=== PATIENT | female | born 1950 | race Caucasian/White ===

== ENCOUNTER 2018-12-20 20:54 | Inpatient (IN) | payer OTHER, MEDICARE ==
[2018-12-20] MEDS ORDERED: IPRATROPIUM-ALBUTEROL 3 ML NEB INHALATION STA (21:18)
[2018-12-20] MEDS ORDERED: predniSONE 50 MG TAB PO STA (21:18)
--- NOTE | 2018-12-20 21:41 | ED ---
General Adult HPI - General Source: patient, family, RN notes reviewed, old records reviewed Mode of arrival: ambulatory Limitations: no limitations <Lamberto Peralta - Last Filed: 12/20/18 23:27> <Larisa Levi - Last Filed: 12/21/18 21:40> - General Chief complaint: Upper Respiratory Infection Stated complaint: Cough Time Seen by Provider: 12/20/18 21:05 - History of Present Illness Initial comments: 68-year-old female patient with past medical history of atrial fibrillation anticoagulated on Coumadin, to PD presents to ED with approximately 6 days of productive cough. Patient denies any other complaints. Denies nausea vomiting diarrhea, fevers and chills. Patient reports that she has had some mild chest pain shortness of breath with coughing. Denies any chest pain or shortness of breath at baseline. Patient denies any other complaints. Systemic: Pt denies fatigue, myalgia, fever/chills, rash. Pt denies weakness, night sweats, weight loss. Neuro: Pt denies headache, visual disturbances, syncope or pre-syncope. HEENT: Pt denies ocular discharge or irritation, otalgia, rhinorrhea, pharyng itis or notable lymphadenopathy. Cardiopulmonary: Pt denies heart palpitations, dyspnea on exertion. Abdominal/GI: Pt denies abdominal pain, n/v/d. : Pt denies dysuria, burning w/ urination, frequency/urgency. Denies new onset urinary or bowel incontinence. MSK: Pt denies myalgia, loss of strength or function in extremities. Neuro: Pt denies new onset weakness, paresthesias. (Lamberto Peralta) - Related Data Home Medications Medication Instructions Recorded Confirmed Atenolol [Tenormin] 25 mg PO DAILY 12/20/18 12/20/18 Cholecalciferol [Vitamin D3] 1,000 unit PO DAILY 12/20/18 12/20/18 Flecainide Acetate 200 mg PO BID 12/20/18 12/20/18 LORazepam [Ativan] 0.5 mg PO BID PRN 12/20/18 12/20/18 Lovastatin [Mevacor] 40 mg PO HS 12/20/18 12/20/18 Lutein 10 mg PO DAILY 12/20/18 12/20/18 Sertraline [Zoloft] 50 mg PO HS 12/20/18 12/20/18 Warfarin [Coumadin] 2.5 mg PO HS 12/20/18 12/20/18 Warfarin [Coumadin] 3.75 mg PO TH 12/20/18 12/20/18 risperiDONE [RisperDAL] 1 mg PO HS 12/20/18 12/20/18 Loratadine [Claritin] 10 mg PO DAILY 12/21/18 12/21/18 Allergies Allergy/AdvReac Type Severity Reaction Status Date / Time metoclopramide [From Reglan] Allergy Swelling Verified 12/20/18 21:14 Review of Systems ROS Other: All systems not noted in ROS Statement are negative. <Lamberto Peralta - Last Filed: 12/20/18 23:27> ROS Other: All systems not noted in ROS Statement are negative. <Larisa Levi - Last Filed: 12/21/18 21:40> ROS Statement: Those systems with pertinent positive or pertinent negative responses have been documented in the HPI. 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 Past Psychological History: Depression Smoking Status: Former smoker Past Alcohol Use History: None Reported Past Drug Use History: None Reported <Lamberto Peralta - Last Filed: 12/20/18 23:27> - Past Family History Father Family Medical History: Congestive Heart Failure (CHF) Mother Family Medical History: Cancer Additional Family Medical History / Comment(s): lymphoma Sister(s) Family Medical History: Cancer Additional Family Medical History / Comment(s): brain cancer <Larisa Levi - Last Filed: 12/21/18 21:40> General Exam Limitations: no limitations <Lamberto Peralta - Last Filed: 12/20/18 23:27> - General Exam Comments Initial Comments: Constitutional: NAD, AOX3, Pt has pleasant affect. HEENT: NC/AT, trachea midline, neck supple, no lymphadenopathy. Posterior pharynx non erythematous, without exudates. External ears appear normal, without discharge. Mucous membranes moist. Eyes PERRLA, EOM intact. There is no scleral icterus. No pallor noted. Cardiopulmonary: RRR, no murmurs, rubs or gallops, no JVD noted. Mild wheezing noted in anterior lung mancera, resolved after breathing treatment. Lungs CTAB. No peripheral edema. Abdominal exam: Abdomen soft and non-distended. Abdomen non-tender to palpation in all 4 quadrants. Bowel sounds active in LLQ. No hepatosplenomegaly. No ecchymosis Neuro: CN II-XII grossly intact. No nuchal rigidity. MSK: No posterior calf tenderness bilaterally, homans sign negative bilaterally. Posterior tibialis and radial pulse +2 bilaterally. Sensation intact in upper and lower extremities. Full active ROM in upper and lower extremities, 5/5 stregnth. (Lamberto Peralta) Course Vital Signs 12/20/18 12/20/18 12/20/18 20:59 21:24 21:33 Temperature 98.3 F Pulse Rate 94 94 Respiratory 20 16 Rate Blood Pressure 117/74 O2 Sat by Pulse 94 L Oximetry 12/20/18 12/20/18 12/20/18 21:42 22:33 23:01 Temperature Pulse Rate 92 53 L 92 Respiratory 16 16 Rate Blood Pressure 125/56 98/57 O2 Sat by Pulse 96 96 Oximetry Medical Decision Making - Lab Data Result diagrams: 12/20/18 21:25 12/20/18 21:25 - EKG Data -: EKG Interpreted by La (and dr levi) <Lamberto Peralta - Last Filed: 12/20/18 23:27> - Lab Data Result diagrams: 12/21/18 05:38 12/20/18 21:25 <Larisa Levi - Last Filed: 12/21/18 21:40> - Medical Decision Making 68-year-old female patient with past medical history of atrial fibrillation anticoagulated on Coumadin, to PD presents to ED with approximately 6 days of productive cough. Patient denies any other complaints. Denies nausea vomiting diarrhea, fevers and chills. Patient reports that she has had some mild chest pain shortness of breath with coughing. Denies any chest pain or shortness of breath at baseline. Patient denies any other complaints. Pt VSS afebrile. Physical exam displayed mild wheezing in anterior lung mancera. His of this breathing treatment. Chest revealed no acute process. EKG NSR. CBC non- impressive. Coagulation studies revealed therapeutic INR 2.7. D-dimer negative. CMP non-impressive. Troponin elevated at 0.493. Influenza negative. Patient diagnosed and systemic. Patient started on low intensity heparin. No bolus as already anticoagulated on warfarin. She'll be admitted for serial troponins and further evaluation. Case discussed and pt seen by Dr. Levi. (Lamberto Peralta) I personally saw and examined the patient. I reviewed and agree with the mid- level provider findings including all diagnostic interpretations and treatment plans as written unless otherwise stated. Patient care was discussed with admitting physician Dr. Dumont who agrees with plan for admission for serial troponins and continuous monitoring. (Larisa Levi) - Lab Data Lab Results 12/20/18 12/20/18 12/20/18 Range/Units 21:25 21:25 21:25 WBC 8.3 (3.8-10.6) k/uL RBC 3.95 (3.80-5.40) m/uL Hgb 12.1 (11.4-16.0) gm/dL Hct 35.8 (34.0-46.0) % MCV 90.6 (80.0-100.0) fL MCH 30.7 (25.0-35.0) pg MCHC 33.9 (31.0-37.0) g/dL RDW 13.1 (11.5-15.5) % Plt Count 295 (150-450) k/uL Neutrophils % 80 % Lymphocytes % 11 % Monocytes % 5 % Eosinophils % 1 % Basophils % 0 % Neutrophils # 6.6 (1.3-7.7) k/uL Lymphocytes # 0.9 L (1.0-4.8) k/uL Monocytes # 0.4 (0-1.0) k/uL Eosinophils # 0.1 (0-0.7) k/uL Basophils # 0.0 (0-0.2) k/uL PT 25.9 H (9.0-12.0) sec INR 2.7 H (<1.2) APTT 34.2 H (22.0-30.0) sec D-Dimer 0.25 (<0.60) mg/L FEU Sodium 138 (137-145) mmol/L Potassium 3.5 (3.5-5.1) mmol/L Chloride 100 (98-107) mmol/L Carbon Dioxide 27 (22-30) mmol/L Anion Gap 11 mmol/L BUN 17 (7-17) mg/dL Creatinine 0.65 (0.52-1.04) mg/dL Est GFR (CKD-EPI)AfAm >90 (>60 ml/min/1.73 sqM) Est GFR (CKD-EPI)NonAf >90 (>60 ml/min/1.73 sqM) Glucose 120 H (74-99) mg/dL Calcium 9.5 (8.4-10.2) mg/dL Magnesium (1.6-2.3) mg/dL Total Bilirubin 0.6 (0.2-1.3) mg/dL AST 23 (14-36) U/L ALT 32 (9-52) U/L Alkaline Phosphatase 94 (38-126) U/L Troponin I (0.000-0.034) ng/mL NT-Pro-B Natriuret Pep pg/mL Total Protein 6.9 (6.3-8.2) g/dL Albumin 4.1 (3.5-5.0) g/dL Influenza Type A RNA (Not Detectd) Influenza Type B (PCR) (Not Detectd) 12/20/18 12/20/18 12/20/18 Range/Units 21:25 21:25 21:25 WBC (3.8-10.6) k/uL RBC (3.80-5.40) m/uL Hgb (11.4-16.0) gm/dL Hct (34.0-46.0) % MCV (80.0-100.0) fL MCH (25.0-35.0) pg MCHC (31.0-37.0) g/dL RDW (11.5-15.5) % Plt Count (150-450) k/uL Neutrophils % % Lymphocytes % % Monocytes % % Eosinophils % % Basophils % % Neutrophils # (1.3-7.7) k/uL Lymphocytes # (1.0-4.8) k/uL Monocytes # (0-1.0) k/uL Eosinophils # (0-0.7) k/uL Basophils # (0-0.2) k/uL PT (9.0-12.0) sec INR (<1.2) APTT (22.0-30.0) sec D-Dimer (<0.60) mg/L FEU Sodium (137-145) mmol/L Potassium (3.5-5.1) mmol/L Chloride (98-107) mmol/L Carbon Dioxide (22-30) mmol/L Anion Gap mmol/L BUN (7-17) mg/dL Creatinine (0.52-1.04) mg/dL Est GFR (CKD-EPI)AfAm (>60 ml/min/1.73 sqM) Est GFR (CKD-EPI)NonAf (>60 ml/min/1.73 sqM) Glucose (74-99) mg/dL Calcium (8.4-10.2) mg/dL Magnesium 1.5 L (1.6-2.3) mg/dL Total Bilirubin (0.2-1.3) mg/dL AST (14-36) U/L ALT (9-52) U/L Alkaline Phosphatase (38-126) U/L Troponin I 0.493 H* (0.000-0.034) ng/mL NT-Pro-B Natriuret Pep 287 pg/mL Total Protein (6.3-8.2) g/dL Albumin (3.5-5.0) g/dL Influenza Type A RNA (Not Detectd) Influenza Type B (PCR) (Not Detectd) 12/20/18 Range/Units 21:50 WBC (3.8-10.6) k/uL RBC (3.80-5.40) m/uL Hgb (11.4-16.0) gm/dL Hct (34.0-46.0) % MCV (80.0-100.0) fL MCH (25.0-35.0) pg MCHC (31.0-37.0) g/dL RDW (11.5-15.5) % Plt Count (150-450) k/uL Neutrophils % % Lymphocytes % % Monocytes % % Eosinophils % % Basophils % % Neutrophils # (1.3-7.7) k/uL Lymphocytes # (1.0-4.8) k/uL Monocytes # (0-1.0) k/uL Eosinophils # (0-0.7) k/uL Basophils # (0-0.2) k/uL PT (9.0-12.0) sec INR (<1.2) APTT (22.0-30.0) sec D-Dimer (<0.60) mg/L FEU Sodium (137-145) mmol/L Potassium (3.5-5.1) mmol/L Chloride (98-107) mmol/L Carbon Dioxide (22-30) mmol/L Anion Gap mmol/L BUN (7-17) mg/dL Creatinine (0.52-1.04) mg/dL Est GFR (CKD-EPI)AfAm (>60 ml/min/1.73 sqM) Est GFR (CKD-EPI)NonAf (>60 ml/min/1.73 sqM) Glucose (74-99) mg/dL Calcium (8.4-10.2) mg/dL Magnesium (1.6-2.3) mg/dL Total Bilirubin (0.2-1.3) mg/dL AST (14-36) U/L ALT (9-52) U/L Alkaline Phosphatase (38-126) U/L Troponin I (0.000-0.034) ng/mL NT-Pro-B Natriuret Pep pg/mL Total Protein (6.3-8.2) g/dL Albumin (3.5-5.0) g/dL Influenza Type A RNA Not Detected (Not Detectd) Influenza Type B (PCR) Not Detected (Not Detectd) - EKG Data EKG Comments: Ventricular rate 89, QRS 116, QT/QTC 390/474. No sinus rhythm, no ST elevation or depression (Lamberto Peralta) Disposition Is patient prescribed a controlled substance at d/c from ED?: No <Lamberto Peralta - Last Filed: 12/20/18 23:27> <Larisa Levi - Last Filed: 12/21/18 21:40> Clinical Impression: NSTEMI (non-ST elevated myocardial infarction) Disposition: HOME SELF-CARE Condition: Serious
--- NOTE | 2018-12-20 21:46 | XR ---
EXAMINATION TYPE: XR chest 2V DATE OF EXAM: 12/20/2018 COMPARISON: NONE HISTORY: Cough TECHNIQUE: Frontal and lateral views of the chest are obtained. FINDINGS: There is no heart failure nor confluent pneumonic infiltrate. Costophrenic angles are shaun r. Bony thorax appears intact. There is right shoulder surgery. IMPRESSION: No active cardiopulmonary disease. Normal heart.
[2018-12-20 22:19] LABS: Basophils % (A) 0 %; Eosinophils # (A) 0.1 k/uL (0-0.7); Eosinophils % (A) 1 %; HCT 35.8 % (34.0-46.0); HGB 12.1 gm/dL (11.4-16.0); Lymphocytes # (A) 0.9 k/uL (1.0-4.8); Lymphocytes % (A) 11 %; MCH 30.7 pg (25.0-35.0); MCHC 33.9 g/dL (31.0-37.0); MCV 90.6 fL (80.0-100.0); Monocytes # (A) 0.4 k/uL (0-1.0); Monocytes % (A) 5 %; Neutrophils # (A) 6.6 k/uL (1.3-7.7); Neutrophils % (A) 80 %; Platelet Count 295 k/uL (150-450); RBC 3.95 m/uL (3.80-5.40); RDW 13.1 % (11.5-15.5); WBC 8.3 k/uL (3.8-10.6)
[2018-12-20 22:29] LABS: ALT 32 U/L (9-52); AST 23 U/L (14-36); Albumin 4.1 g/dL (3.5-5.0); Alkaline Phosphatase 94 U/L (38-126); Anion Gap 11 mmol/L; Blood Urea Nitrogen 17 mg/dL (7-17); Calcium 9.5 mg/dL (8.4-10.2); Carbon Dioxide 27 mmol/L (22-30); Chloride 100 mmol/L (98-107); Glucose 120 mg/dL (74-99); Potassium 3.5 mmol/L (3.5-5.1); Sodium 138 mmol/L (137-145); Total Bilirubin 0.6 mg/dL (0.2-1.3); Total Protein 6.9 g/dL (6.3-8.2)
[2018-12-20 22:31] LABS: D-Dimer 0.25 mg/L FEU (<0.60); INR 2.7 (<1.2); Partial Thromboplastin Time 34.2 sec (22.0-30.0); Prothrombin Time 25.9 sec (9.0-12.0)
[2018-12-20] MEDS ORDERED: HEPARIN SODIUM,PORCINE 5,000 UNIT/ML 1 ML VIAL IV PRN (23:00)
[2018-12-20] MEDS ORDERED: HEPARIN SOD,PORK IN 0.45% NACL 25,000 UNIT in 0.45% NACL 1 250ML.BAG IV SCH (23:00)
[2018-12-20] MEDS ORDERED: SODIUM CHLORIDE 0.9% 1,000 ML IV STA (23:11)
[2018-12-20] MEDS ORDERED: NITROGLYCERIN SL TABS 0.4 MG TAB SUBLINGUAL PRN (23:14)
[2018-12-20] MEDS ORDERED: ASPIRIN 81 MG PO STA (23:14)
[2018-12-20] MEDS ORDERED: IPRATROPIUM-ALBUTEROL 3 ML NEB INHALATION PRN (23:49)
[2018-12-21] MEDS ORDERED: LORazepam 0.5 MG TAB PO PRN (01:42)
[2018-12-21] MEDS: FLECAINIDE 50 MG TAB PO SCH ×3 (01:57→18:12)
[2018-12-21 06:47] LABS: Basophils % (A) 0 %; Eosinophils % (A) 0 %; HCT 34.6 % (34.0-46.0); HGB 11.6 gm/dL (11.4-16.0); Lymphocytes # (A) 0.7 k/uL (1.0-4.8); Lymphocytes % (A) 9 %; MCH 30.5 pg (25.0-35.0); MCHC 33.5 g/dL (31.0-37.0); MCV 91.2 fL (80.0-100.0); Mean Platelet Volume 7.5; Monocytes # (A) 0.1 k/uL (0-1.0); Monocytes % (A) 1 %; Neutrophils # (A) 7.3 k/uL (1.3-7.7); Neutrophils % (A) 90 %; Platelet Count 283 k/uL (150-450); RBC 3.79 m/uL (3.80-5.40); WBC 8.1 k/uL (3.8-10.6)
[2018-12-21 06:52] LABS: INR 2.6 (<1.2); Partial Thromboplastin Time 69.2 sec (22.0-30.0); Prothrombin Time 24.8 sec (9.0-12.0)
[2018-12-21 07:01] LABS: Cholesterol 142 mg/dL (<200); HDL Cholesterol 48 mg/dL (40-60); LDL Cholesterol,Calculated 80 mg/dL (0-99); Triglycerides 69 mg/dL (<150)
[2018-12-21] MEDS ORDERED: Magnesium Replacement Protocol 1 EACH MISC MISCELLANE PRN (08:49)
[2018-12-21] MEDS: MAGNESIUM SULFATE-D5W PMX 1 GM in DEXTROSE/WATER 1 100ML.BAG IVPB SCH ×2 (09:14→10:35)
--- NOTE | 2018-12-21 09:24 | CONS ---
CONSULTATION CHIEF COMPLAINT: Elevated troponin. Shima is a 68-year-old lady with history of chronic atrial fibrillation status post ablation on 3 occasions, who is on long-term Coumadin and flecainide, presents to the hospital having had what she describes as bouts of cough and choking sensation which she thought that she stopped breathing and she almost became cyanotic. She recovered from this on her own and after debating for a while came to hospital and is admitted because of mildly elevated troponin. She did not have any chest pain. Does not have shortness of breath. Does not have leg edema, paroxysmal nocturnal dyspnea or orthopnea. At the time of my evaluation this morning, she appears comfortable at rest and is free of symptoms. Her INR is elevated at 2.6. She is on Coumadin. Given her symptoms of choking sensation, shortness of breath and elevated troponin, I advised her to undergo cardiac catheterization for further evaluation. She wants to think over and make a decision. She is wondering if she can go to [facility] and follow up with her own flight reservations manager and she is going to make this decision. INR is 2.6. She is currently on IV heparin. I am going to stop it. PAST MEDICAL HISTORY: Significant for dyslipidemia, atrial fibrillation status post ablation. CURRENT MEDICATIONS: Include atenolol 25 mg daily, flecainide 200 b.i.d., Ativan, lutein, Coumadin, Mevacor, Zoloft, and Risperdal. ALLERGIES: ALLERGIES TO REGLAN. FAMILY HISTORY: Negative for premature coronary artery disease. SOCIAL HISTORY: Negative for current smoking, EtOH abuse, or drug abuse. She quit smoking more than 10 years ago. REVIEW OF SYSTEMS: HEENT is unremarkable. Cardiac as described above. Respiratory as described above. GI negative. Genitourinary: Negative. Allergy/Immunology: Negative. Skin negative. Musculoskeletal significant for arthritis. Psychosocial negative. Endocrine: Negative. Derm: Negative. Constitutional negative. Oncological negative. Rest of the system review is not relevant. EXAM: Comfortable at rest. Vital signs are stable. There is no jugular venous distention. Carotid upstroke is normal. There is no bruit. Chest exam reveals good air entry bilaterally. Heart exam reveals first and second heart sounds. No gallop. No murmur. No rub. Abdomen is soft, nontender. Exam of extremities did not reveal any edema. Peripheral pulses are felt. CONGRESSIONAL ASSISTANT exam did not reveal focal neurological deficits. EKG shows sinus rhythm with nonspecific ST-T wave changes throughout. INR is 2.6. Troponin is 0.4 and 0.8. LDL cholesterol is normal at 80. ASSESSMENT: 1. Acute non ST-segment elevation myocardial infarction. 2. Paroxysmal atrial fibrillation status post ablation. PLAN: I am going to stop the IV heparin, watch her INRs. Whenever the INR comes down, we can consider cardiac catheterization. If she decides to go home, she can follow up with her own flight reservations manager and she will undergo cardiac workup through her own physician. MMODL / IJN: [id number] /
[2018-12-21] MEDS: ISOSORBIDE MONONITRATE ER 30 MG TAB.ER.24H PO SCH (09:38)
[2018-12-21] MEDS: ASPIRIN 325 MG TAB PO SCH (09:38)
[2018-12-21] MEDS: predniSONE 20 MG TAB PO SCH (09:38)
--- NOTE | 2018-12-21 09:40 | CONS ---
CONSULTATION ADDENDUM: The patient and her have decided not to have an invasive angiography on this admission at this hospital. I am going to stop the IV heparin, resume Coumadin. Ambulate her and then see how she does. If she is doing well, she may be discharged home tomorrow morning and she will follow up with her own appellate court judge. LAZARO / MCKENNA: [id number] /
--- NOTE | 2018-12-21 16:34 | PN ---
PROGRESS NOTE DATE OF SERVICE: 12/21/2018 CHIEF COMPLAINT: Elevated troponin and nonspecific EKG changes. HISTORY OF PRESENT ILLNESS: This lady is doing fine. She has had no chest pain, pressure-like sensation in the chest, diaphoresis, shortness of breath, etc. PHYSICAL EXAM: Chest is clear. The cardiac exam is normal. Abdomen is soft, nontender. IMPRESSION: 1. Elevated troponin. 2. Abnormal EKG. 3. Atrial fibrillation. 4. Bronchitis. PLAN: Watch overnight and probably discharge tomorrow if she stable. MMODL / IJN: [id number] /
--- NOTE | 2018-12-21 16:48 | HP ---
HISTORY AND PHYSICAL CHIEF COMPLAINT: Bronchitis. HISTORY OF PRESENT ILLNESS: This is the first admission for this lady who lives in [place] and is 68 years old. She apparently came to the emergency room after she had a coughing episode that she could not stop. In the emergency room, she was diagnosed as having bronchitis. In the emergency room she had the EKG which demonstrated some ST-segment changes with T-wave inversion in V1, 2, [address]-segment depression from V2 to V5. It is felt safest to admit her. She has had absolutely no history of heart disease, chest pain, pressure in the chest, radiation, discomfort in the arms, etc., but she does relate that she occasionally gets "aching in her jaw." She does have chronic atrial fibrillation for which she takes Coumadin and flecainide. There was the thought that she should be studied here with cardiac cath, but the patient would like to return to her physicians at the [facility]. REVIEW OF SYSTEMS: She has had no focal neurologic deficits, change in vision or hearing, hemoptysis, pleurisy, purulent sputum production, murmurs, rheumatic fever, history of any heart disease, abdominal pain, indigestion, nausea, vomiting, diarrhea, melena, hematochezia, jaundice, hepatitis, cirrhosis, hematuria frequency. urgency and dysuria, incontinence, renal failure, diabetes, etc. Past medical history, family history and personal and social history is unremarkable. She is ALLERGIC TO METOCLOPRAMIDE. Her medications include D3, Claritin, atenolol, flecainide, Ativan, lovastatin, Risperidone, sertraline, and Coumadin. 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 She used to smoke but stopped about 10 years ago. She has a family history of numerous heart problems and malignancies. She also recently had a carotid study, which demonstrated an 80-85 percent stenosis on one side. PHYSICAL EXAMINATION: Blood pressure is 114/64, pulse of 82, respirations of 19. She is afebrile. In general, she appeared to be well developed, well nourished and slightly overweight. Skin color is normal. Skin is warm, dry. Lymph nodes not enlarged. Head, ears, eyes, nose, mouth, and throat were normal. Neck veins not distended. Thyroid is not enlarged. CHEST: Clear. Cardiac exam is normal. Abdomen is soft, nontender. Extremities: Normal. IMPRESSION: 1. Bronchitis. 2. Probable tracheal laryngospasm. 3. Atrial fibrillation. 4. Elevated troponin with nonspecific ST-segment T-wave changes. PLAN: 1. Bed rest. 2. IV fluids. 3. Serial EKGs and enzymes. 4. Cardiology consult. 5. She would like to be discharged in the next 24 to 48 hours and return to her physicians at [facility]. MMODL / IJN: [id number] /
[2018-12-21] MEDS ORDERED: WARFARIN 2.5 MG TAB PO SCH (18:00)
[2018-12-21] MEDS ORDERED: risperiDONE 1 MG TAB PO SCH (21:00)
[2018-12-21] MEDS ORDERED: ATORVASTATIN 10 MG TAB PO SCH (21:00)
[2018-12-21] MEDS ORDERED: SERTRALINE 50 MG TAB PO SCH (21:00)
[2018-12-22 02:40] VITALS: RESP 18
[2018-12-22 06:47] VITALS: TEMP 98.2
[2018-12-22 06:51] LABS: Basophils % (A) 0 %; Eosinophils % (A) 1 %; HCT 31.8 % (34.0-46.0); HGB 10.7 gm/dL (11.4-16.0); Lymphocytes # (A) 1.2 k/uL (1.0-4.8); Lymphocytes % (A) 14 %; MCH 30.9 pg (25.0-35.0); MCHC 33.5 g/dL (31.0-37.0); MCV 92.3 fL (80.0-100.0); Monocytes # (A) 0.5 k/uL (0-1.0); Monocytes % (A) 6 %; Neutrophils # (A) 6.6 k/uL (1.3-7.7); Neutrophils % (A) 78 %; Platelet Count 293 k/uL (150-450); RBC 3.45 m/uL (3.80-5.40); RDW 13.2 % (11.5-15.5); WBC 8.5 k/uL (3.8-10.6)
[2018-12-22] MEDS: ASPIRIN 325 MG TAB PO SCH (08:18)
[2018-12-22] MEDS: ISOSORBIDE MONONITRATE ER 30 MG TAB.ER.24H PO SCH (08:18)
[2018-12-22] MEDS: FLECAINIDE 50 MG TAB PO SCH (08:18)
[2018-12-22] MEDS: predniSONE 20 MG TAB PO SCH (08:18)
[2018-12-22 08:25] VITALS: BP 107/59; PULSE 88
[2018-12-22] MEDS ORDERED: ATENOLOL 25 MG TAB PO SCH (09:00)
--- NOTE | 2018-12-22 10:10 | P.PN ---
Subjective Progress Note Date: 12/22/18 This is a 68-year-old female with known history of chronic persistent atrial fibrillation, status post ablation procedures in 3 separate occasions she was on long-term Coumadin as well as flecainide, history of hyperlipidemia, presented to the hospital with symptoms of choking sensation as well as some difficulty in breathing. Patient also has a productive cough of yellow and green sputum. He had been seen in consultation by Dr. Mendoza because of abnormality noted in troponin. He did advise the patient to undergo cardiac catheterization however the patient deferred having the heart catheterization performed here and wishes to follow-up with her abstract manager at [facility]. At the time of my examination this morning, she continues to have productive cough of yellow and green sputum. Breathing is overall stable, denies chest discomfort. Blood pressure 108/60 with a heart rate in the 80s, 92% on room air. White blood cell count 8.5, hemoglobin 10.7, platelet count 293. Afebrile this morning. Echocardiogram with Doppler study remains pending. Objective - Vital Signs Vital signs: Vital Signs Temp 98.2 F 12/22/18 08:22 Pulse 88 12/22/18 08:22 Resp 18 12/22/18 08:22 BP 107/59 12/22/18 08:22 Pulse Ox 92 L 12/22/18 08:22 Intake & Output 12/21/18 12/22/18 12/22/18 18:59 06:59 18:59 Intake Total 480 Balance 480 Weight 75.9 kg Intake: Oral 480 Other: # Voids 1 1 - Exam PHYSICAL EXAMINATION: GENERAL: 68-year-old female in no acute distress at the time of my examination HEENT: Head is atraumatic, normocephalic. Pupils equal, round. Sclera anicteric. Conjunctiva are clear. Mucous membranes of the mouth are moist. Neck is supple. There is no elevated jugular venous pressure. No carotid bruit is heard. HEART EXAMINATION: Heart S1 and S2 irregularly irregular CHEST EXAMINATION: Lungs reveal some scattered coarse rhonchi that clear with cough ABDOMEN: Soft, nontender. Bowel sounds are heard. No organomegaly noted. EXTREMITIES: 2+ peripheral pulses with no evidence of peripheral edema and no calf tenderness noted. NEUROLOGIC patient is awake, alert and oriented 3 . . - Labs CBC & Chem 7: 12/22/18 06:08 04/13/19 21:25 Labs: Abnormal Lab Results - Last 24 Hours (Table) 12/21/18 12/22/18 Range/Units 08:49 06:08 RBC 3.45 L (3.80-5.40) m/uL Hgb 10.7 L (11.4-16.0) gm/dL Hct 31.8 L (34.0-46.0) % Troponin I 0.350 H* (0.000-0.034) ng/mL Assessment and Plan Plan: Assessment and plan #1 non-ST elevation myocardial infarction, patient refuses at this time to have an angiogram performed here, she wishes to follow-up with her abstract manager at [facility]. #2 acute bronchitis #3 chronic persistent atrial fibrillation, status post ablation procedure 3 in the past #4 hyperlipidemia Plan From cardiology's perspective, patient may be able to be discharged home to follow-up with her abstract manager at [facility] post discharge. We will review her echocardiogram with Doppler study. DNP note has been reviewed, I agree with a documented findings and plan of care. Patient was seen and examined.
--- NOTE | 2018-12-22 18:58 | DS ---
DISCHARGE SUMMARY CHIEF COMPLAINT: Cough, bronchitis and elevated troponin. HISTORY OF PRESENT ILLNESS AND PHYSICAL EXAM: The details of this lady's history and physical can be found in the initial workup. LABORATORY STUDIES: While she was in a hospital, she had laboratory studies, details of which can be found in the laboratory section of her chart. COURSE IN THE HOSPITAL: After admission, she was placed on bedrest, started on intravenous fluids in telemetry and she had no chest pain whatsoever. She was seen by Cardiology who felt that she should undergo further studies, but the patient and elected to go back to the [facility] where they have physicians at [facility]. She will be discharged on her usual diet, activity, medication. FINAL DIAGNOSES: 1. Cough and bronchitis. 2. Elevated troponin. OPERATIONS: None. CONSULTATIONS: Cardiology. She is improved. LAZARO / MCKENNA: [id number] /
--- NOTE | 2018-12-23 07:40 | ECHOF ---
Referral Reason:elevated troponins MEASUREMENTS -------- HEIGHT: 162.6 cm WEIGHT: 75.7 kg BP: 128/71 RVIDd: 3.6 cm (< 3.3) IVSd: 1.1 cm (0.6 - 1.1) LVIDd: 4.9 cm (3.9 - 5.3) LVPWd: 1.2 cm (0.6 - 1.1) IVSs: 1.5 cm LVIDs: 3.6 cm LVPWs: 1.5 cm LA Diam: 3.3 cm (2.7 - 3.8) LAESV Index (A-L): 29.17 ml/m Ao Diam: 3.2 cm (2.0 - 3.7) AV Cusp: 1.9 cm (1.5 - 2.6) MV EXCURSION: 13.991 mm (> 18.000) MV EF SLOPE: 78 mm/s (70 - 150) EPSS: 0.9 cm MV E Ernesto: 0.92 m/s MV DecT: 232 ms MV A Ernesto: 0.52 m/s MV E/A Ratio: 1.77 RAP: 5.00 mmHg RVSP: 27.49 mmHg FINDINGS -------- Sinus rhythm. This was a technically adequate study. The left ventricular size is normal. There is borderline concentric left ventricular hypertrophy. Overall left ventricular systolic function is mildly impaired with, an EF between 45 - 50 %. Mid a nterior LV wall motion is hypokinetic. The right ventricle is mildly enlarged. LA is midly dilated 29-33ml/m2. The right atrium is normal in size. There is mild aortic valve sclerosis. The mitral valve leaflets are mildly thickened. Moderate mitral annular calcification present. Mo derate mitral regurgitation is present. Mild tricuspid regurgitation present. Right ventricular systolic pressure is normal at < 35 mmHg. There is no pulmonic regurgitation present. The aortic root size is normal. Normal inferior vena cava with normal inspiratory collapse consistent with estimated right atrial pre ssure of 5 mmHg. There is no pericardial effusion. CONCLUSIONS -------- 1. Sinus rhythm. 2. This was a technically adequate study. 3. The left ventricular size is normal. 4. There is borderline concentric left ventricular hypertrophy. 5. Overall left ventricular systolic function is mildly impaired with, an EF between 45 - 50 %. 6. Mid anterior LV wall motion is hypokinetic. 7. The right ventricle is mildly enlarged. 8. LA is midly dilated 29-33ml/m2. 9. The right atrium is normal in size. 10. There is mild aortic valve sclerosis. 11. The mitral valve leaflets are mildly thickened. 12. Moderate mitral annular calcification present. 13. Moderate mitral regurgitation is present. 14. Mild tricuspid regurgitation present. 15. Right ventricular systolic pressure is normal at < 35 mmHg. 16. There is no pulmonic regurgitation present. 17. The aortic root size is normal. 18. Normal inferior vena cava with normal inspiratory collapse consistent with estimated right atrial pressure of 5 mmHg. 19. There is no pericardial effusion. [employer]ACH TOUR DRIVER: Meera Aponte RDCS
[2018-12-25] MEDS ORDERED: WARFARIN 2.5 MG TAB PO SCH (18:00)
== END 2018-12-22 10:55 | disposition home or self-care (01) | DRG 282 ==
LOC: EC 20:54 → 3SCARD 23:51
PROVIDERS: ADMIT Family Medicine; ATTEND Family Medicine
DX: I21.4 Non-ST elevation (NSTEMI) myocardial infarction (principal); I48.0 Paroxysmal atrial fibrillation; F32.9 Major depressive disorder, single episode, unspecified; J38.5 Laryngeal spasm; J20.9 Acute bronchitis, unspecified; E78.5 Hyperlipidemia, unspecified; Z53.29 Procedure and treatment not carried out because of patient's decision for other reasons; Z79.01 Long term (current) use of anticoagulants; Z79.899 Other long term (current) drug therapy; Z90.710 Acquired absence of both cervix and uterus; Z90.49 Acquired absence of other specified parts of digestive tract; Z87.891 Personal history of nicotine dependence; Z88.8 Allergy status to other drugs, medicaments and biological substances; Z80.8 Family history of malignant neoplasm of other organs or systems; Z82.49 Family history of ischemic heart disease and other diseases of the circulatory system; Z80.7 Family history of other malignant neoplasms of lymphoid, hematopoietic and related tissues
CPT/HCPCS: 36415; 71046; 80053; 80061; 83735; 83880; 84484; 85025; 85379; 85610; 85730; 87502; 93005; 93306; 94640; 96365; 99285